=== PATIENT | male | born 1995 | race Caucasian/White ===

== ENCOUNTER → 2019-05-25 | Outpatient (CLI) | payer OTHER ==
[2019-05-25 08:42] LABS: SPERM MORPHOLOGY SENT TO REFERENC LAB
[2019-05-25 11:38] LABS: SPERM CONCENTRATION 148.8 X10^6/mL (>12.0); SPERM PROGRESSION 4; TOTAL SPERM COUNT 357.1 X10^6 (>33.0)
== END ==
LOC: LAB 08:04
PROVIDERS: ATTEND Nurse Practitioner Family
DX: N46.9 Male infertility, unspecified (principal)
CPT/HCPCS: 89320